=== PATIENT | female | born 1980 | race American Indian/Alaskan Native ===

== ENCOUNTER 2019-03-02 11:12 | Day surgery (SDC) | payer MEDICAID ==
--- NOTE | 2019-02-27 15:02 | History and Physical Report ---
History of Present Illness Date of examination: 03/02/19 Chief complaint: RUQ pain History of present illness: 38yo F went to the [facility] a couple months ago for back pain. This time had pain in anterior abdomen. +N/V. No F/C. Had similar attack in 2017. Both times told that she had gallstones. This time, was advised to see surgeon. Has diet with lots of cheese. Her last episode of pain was last week after eating. She has no pain now. Past History Past Medical History: hypertension Past Surgical History: (times 5), Other (tubal ligation; bladder repair after injury during 3rd ) Social history: denies: smoking Family history: cancer, diabetes, hypertension Medications and Allergies Allergies Allergy/AdvReac Type Severity Reaction Status Date / Time No Known Allergies Allergy Verified 02/25/19 12:23 Home Medications Medication Instructions Recorded Confirmed Last Taken Type Ergocalciferol [Vitamin D2] 1 cap PO QWEEK 02/25/19 02/25/19 Unknown History Labetalol HCl [Labetalol 300mg TAB] 300 mg PO BID 02/25/19 02/25/19 Unknown History Metformin HCl [Glucophage ER] 750 mg PO QDAY 02/25/19 02/25/19 Unknown History NIFEdipine [Nifedipine ER] 30 mg PO DAILY 02/25/19 02/25/19 Unknown History Review of Systems - Constitutional no fever, no chills, no chronic pain - Cardiovascular no chest pain, no shortness of breath - Respiratory no cough - Gastrointestinal abdominal pain (after eating), no nausea, no vomiting, no change in bowel habits, no loss of appetite, no dyspepsia/bloating - Genitourinary Genitourinary: no dysuria - Muskuloskeletal no low back pain - Integumentary no rash, no redness, no wounds Exam - General physical appearance Positive: well developed, well nourished, no distress, no pain, obese - Eyes Positive: normal occular movement. Negative: icteric - Neck Positive: trachea midline - Respiratory Positive: normal expansion, normal respiratory effort, clear to auscultation - Cardiovascular Rhythm: regular - Abdomen Abdomen: Present: soft, surgical scars (well healed incision). Absent: tender, distended, masses, guarding, rigid, wound - Integumentary no rash, no growths, no abnormal pigmentation - Neurologic Neurologic: alert and oriented to time, place and person, motor strength and sensation are grossly intact - Psychiatric Psychiatric: appropriate mood/affect, intact judgment & insight, cooperative Assessment and Plan - Patient Problems (1) Calculus of gallbladder with chronic cholecystitis without obstruction Current Visit: No Status: Acute Plan to address problem: By her history, it appears as though she has symptomatic cholelithiasis. She would benefit from cholecystectomy. She is a candidate for robotic-assisted cholecystectomy. Procedure, risks, benefits were explained. All questions were a nswered. Consent was obtained.
[~2019-03-02 11:12] MED LIST: ACETAMINOPHEN 500 MG TAB PO ONE; CELECOXIB 200 MG CAP PO NR; GABAPENTIN 300 MG CAP PO SCH; SODIUM CHLORIDE 0.9% 1000 ML 1,000 ML IV SCH; ceFAZolin/Water 2 GM/20 ML 2 GM/20 ML SYRINGE IV NR
[2019-03-02] MEDS ORDERED: LIDOCAINE (1%) 10 MG/1 ML VIAL 20 ML MDV ONE (12:25)
[2019-03-02] MEDS ORDERED: BUPIVACAINE-EPINEPHRINE/PF 0.5%-1:200,000 (30 ML) VIAL INFILTRATI ONE ×3 (12:25→14:35)
--- NOTE | 2019-03-02 12:29 | Short Stay Summary ---
Short Stay Documentation Date of service: 03/02/19 - History H&P: obtained from office Past Medical History: hypertension Past Surgical History: (times 5), Other (tubal ligation; bladder repair after injury during 3rd ) Social history: no smoking - Allergies and Medications Current Medications: Allergies No Known Allergies Allergy (Verified 02/25/19 12:23) Home Medications Medication Instructions Recorded Confirmed Last Taken Type Ergocalciferol [Vitamin D2] 1 cap PO QWEEK 02/25/19 02/25/19 Unknown History Labetalol HCl [Labetalol 300mg TAB] 300 mg PO BID 02/25/19 02/25/19 Unknown History Metformin HCl [Glucophage ER] 750 mg PO QDAY 02/25/19 02/25/19 Unknown History NIFEdipine [Nifedipine ER] 30 mg PO DAILY 02/25/19 02/25/19 Unknown History Active Medications Celecoxib (Celebrex) 200 mg PO PREOP NR Stop: 03/02/19 23:59 Gabapentin (Neurontin) 900 mg PO PREOP ZEINAB Sodium Chloride (Nacl 0.9% 1000 Ml) 1,000 mls @ 75 mls/hr IV DIRECT ZEINAB Cefazolin Sodium (Ancef/Sterile Water 2 Gm/20 Ml) 2 gm in 20 mls @ 80 mls/hr IV PREOP NR; Protocol Stop: 03/02/19 23:59 - Physical exam General appearance: no acute distress Integumentary: no rash, no growths, no abnormal pigmentation HEENT: Atraumatic Lungs: Clear to auscultation Heart: Regular rate Gastrointestinal: normal, no tenderness, no distended Extremities: No edema, normal temperature, normal color Neurological: Normal speech - Brief post op/procedure progress note Date of procedure: 03/02/19 (dictation:[id number]) Pre-op diagnosis: symptomatic cholelithiasis Post-op diagnosis: same (and chronic cholecystitis) Procedure: robotic assisted lap roosevelt IVF 900cc EBL 50cc Anesthesia: GETA Findings: intrahepatic GB. thickened peritoneal covering. very firm GB packed full of stones Surgeon: GEOVANY BALL (Asst: Elizabeth Stanford) Estimated blood loss: 50-100ml Pathology: list (gallbladder) Specimen disposition: to lab Condition: stable - Hospital course Hospital course: uneventful - Disposition Condition at discharge: Stable Disposition: DC-01 TO HOME OR SELFCARE - Discharge Diagnoses (1) Calculus of gallbladder with chronic cholecystitis without obstruction Status: Acute Short Stay Discharge Plan Wound: open to air, keep clean and dry Special Instructions: no heavy lifting (more than 10lbs) Additional Instructions: Post Operative Instructions No driving until cleared by surgeon. May shower tomorrow. Pat dry the wound or wounds. After surgery, start with a light diet. Consider having a liquid diet first. If you do well, you can advance to a regular diet as you feel comfortable. Apply an ice pack to the wound or wounds for 10-20 minutes at a time. Do this at least 4-5 times a day. You can do it more if he would like. Alternate the use of ibuprofen and Tylenol for the first 2 days. I want you to take these on a scheduled basis. Take 600 mg of ibuprofen every 6 hours. Take 500 mg of Tylenol every 6 hours. You should alternate these 2 medicines. In other words, beginning with the ibuprofen. After 3 hours, take the Tylenol. Keep alternating the 2 drugs every 3 hours. Do this on a scheduled basis for the first 2 days. After that, you can take them as needed. It is very important that you use the prescription pain medicine only for very severe pain. Do not take the prescription medicine before you try using the ibuprofen and Tylenol. We will call you in a couple of days to see how youre doing. If you have any questions or concerns, always feel free to call the clinic at any time. Follow up with: MONAE ALEX MD [Primary Care Provider] - 7 Days GEOVANY BALL MD [Staff Physician] - 14 Days
[2019-03-02] MEDS ORDERED: fentaNYL 100 MCG/2 ML INJ IV PRN (12:31)
[2019-03-02] MEDS ORDERED: ONDANSETRON 4 MG/2 ML INJ IV PRN ×2 (12:31→16:34)
--- NOTE | 2019-03-02 12:33 | Anesthesia Day of Surgery ---
Anesthesia Day of Surgery - Day of Surgery Patient Examined: Yes Patient H&P Reviewed: Yes Patient is NPO: Yes Beta Blockers: Yes
--- NOTE | 2019-03-02 12:35 | Anesthesia Consultation ---
Anesthesia Consult and Med Hx Date of service: 03/02/19 - Airway Anesthetic Teeth Evaluation: Chipped, Crowns ROM Head & Neck: Adequate Mental/Hyoid Distance: Adequate Mallampati Class: Class II Intubation Access Assessment: Probably Good - Pre-Operative Health Status ASA Pre-Surgery Classification: ASA3 Proposed Anesthetic Plan: General - Pulmonary Hx Smoking: Yes (ON AND OFF TOTAL 3YRS; QUIT 10/2018) - Cardiovascular System Hx Hypertension: Yes (03/2004) - Central Nervous System Hx Psychiatric Problems: Yes - Endocrine Hx Non-Insulin Dependent Diabetes: Yes - Hematic Hx Anemia: Yes (2002 SEC TO LONG MENSES; WITH PREGNANCIES) Hx Sickle Cell Disease: Yes (Trait) - Other Systems Hx Alcohol Use: Yes (QUIT 10/2018) Hx Substance Use: Yes (MARIJUANA QUIT 10/2018) Hx Cancer: No Hx Obesity: Yes
[2019-03-02] MEDS ORDERED: SUCCINYLCHOLINE CHLORIDE 200 MG/10 ML INJ MDV ONE (12:41)
[2019-03-02] MEDS ORDERED: ROCURONIUM 50 MG/5 ML INJ IV ONE (12:41)
[2019-03-02] MEDS ORDERED: LIDOCAINE MPF (2%) 20 MG/1 ML VIAL 5 ML ONE (12:41)
[2019-03-02] MEDS ORDERED: HYDROmorphone 1 MG/1 ML INJ ONE ×2 (12:42→16:26)
[2019-03-02] MEDS ORDERED: PROPOFOL 200 MG/20 ML VIAL IV ONE (12:43)
[2019-03-02] MEDS ORDERED: INSULIN NPH/REGULAR 70/30 INJ SUB-Q STA (12:54)
[2019-03-02] MEDS ORDERED: INSULIN REGULAR, HUMAN 100 UNITS/1 ML SUB-Q STA (12:56)
[2019-03-02] MEDS ORDERED: MIDAZOLAM 2 MG/2 ML INJ ONE (13:29)
[2019-03-02] MEDS ORDERED: LIDOCAINE (1%) 10 MG/1 ML VIAL 20 ML MDV INFILTRATI ONE (14:36)
[2019-03-02] MEDS ORDERED: WATER FOR IRRIG STERILE 1,500 ML BOTTLE IR ONE (14:36)
[2019-03-02] MEDS ORDERED: ACETAMINOPHEN 500 MG TAB ONE ×2 (14:45)
[2019-03-02] MEDS ORDERED: KETOROLAC 30 MG/1 ML INJ ONE ×2 (15:34→15:40)
[2019-03-02] MEDS ORDERED: ONDANSETRON 4 MG/2 ML INJ ONE (15:40)
[2019-03-02] MEDS ORDERED: NEOSTIGMINE 10MG/10 ML INJ MDV ONE (15:40)
[2019-03-02] MEDS ORDERED: GLYCOPYRROLATE 0.4 MG/2 ML INJ ONE (15:40)
[2019-03-02] MEDS ORDERED: INSULIN REGULAR, HUMAN 100 UNITS/1 ML IV ONE ×2 (16:00→16:10)
[2019-03-02] MEDS ORDERED: hydrALAZINE 20 MG/1 ML INJ ONE (16:05)
[2019-03-02] MEDS ORDERED: INSULIN REGULAR, HUMAN 100 UNITS/1 ML ONE (16:06)
[2019-03-02] MEDS ORDERED: hydrALAZINE 20 MG/1 ML INJ IV ONE ×2 (16:11→16:25)
[2019-03-02] MEDS ORDERED: HYDROmorphone 1 MG/1 ML INJ IV PRN (16:28)
[2019-03-02] MEDS ORDERED: oxyCODONE /ACETAMINOPHEN 5-325MG TAB ONE (17:16)
[2019-03-02] MEDS ORDERED: oxyCODONE /ACETAMINOPHEN 5-325MG TAB PO PRN (17:38)
--- NOTE | 2019-03-02 17:41 | Operative Report ---
PREOPERATIVE DIAGNOSIS: Symptomatic cholelithiasis with chronic cholecystitis. POSTOPERATIVE DIAGNOSIS: Symptomatic cholelithiasis with chronic cholecystitis. PROCEDURE: Robotic-assisted laparoscopic cholecystectomy. ATTENDING PHYSICIAN: Milton Dubon MD FAMILY PROGRAM SPECIALIST: Elizabeth Stanford. ESTIMATED BLOOD LOSS: Less than 50 mL. FLUIDS: 900 mL. FINDINGS: Intrahepatic gallbladder with thickened peritoneal covering. Gallbladder was densely packed with stones. No other abnormalities noted. SPECIMENS: Gallbladder. DRAINS: None. COMPLICATIONS: None. DISPOSITION: Stable, transport to recovery room. INDICATIONS: This is a 38-year-old female who presented to the office with complaints of post-prandial pain. The patient's history seemed consistent with symptomatic cholelithiasis. She also had prolonged pain in the right upper quadrant, which seemed to fit chronic cholecystitis. The patient was assessed to be need for cholecystectomy. Procedure, risks, benefits were explained to the patient. Risks included but were not limited to infection, bleeding, pain, injury to surrounding structures, possible open procedure, possible need for further procedures in the future. The patient understood and consented. OPERATIVE NOTE: The patient was brought to the operating room and placed on the table in supine position. After adequate general anesthesia was established, the patient was positioned and then prepped and draped in the usual sterile fashion. Antibiotics had been given prior to start of the case. SCDs were in place. Time-out was called. I began by placing a Veress needle in left upper quadrant and I was able to insufflate on the first attempt. This was then replaced with a 5 mm port using the Optiview technique for entry. We had no injury to the underlying structures. Under direct vision, we then placed a 12 mm port at the supraumbilical position and then two more 8 mm ports on the right side of the abdomen. Of note, just inferior to the location of our 12 mm port were adhesions to the umbilicus. I was able to go slightly superior to that and place the port safely. There was no injury to the adhesions. Once all the ports were in, we inserted a lap sponge to be used during the case and then the robot was docked. I then proceeded to the console. As noted previously, the gallbladder was intrahepatic. As it was packed with stones, it was very difficult to grab and elevate; therefore, I began with a top down approach. This difficulty in grasping the gallbladder increased our operative time. The intrahepatic nature of the gallbladder also made it difficult. I ultimately ended up rotating between the medial, lateral and top sides of the gallbladder, trying to dissect it. At one point, I placed a 2-0 silk stitch in the mid body of the gallbladder and then used that to elevate the gallbladder up. We had to move the gallbladder and change positions frequently in order to safely dissect out the gallbladder. Once we had dissected out most of the lateral side, I then was able to begin more dissection on the medial side. We ultimately got down to the triangle of Calot. I dissected out the cystic artery and clips were placed on either side and this was divided. At this point about half of the gallbladder had been dissected off the liver bed. Once the cystic artery was divided, I then was able to assess the tissue between the 2 areas. It did not appear to be anything significant, however, as a precaution I placed one clip distally in relation to the gallbladder and then divided that tissue. Now, we essentially had a very large critical view that extended 2[address] the gallbladder. I felt very confident that what was left was the cystic duct. I dissected out a little bit more of the surrounding tissue just to make sure it indeed appeared to be cystic duct. Thereafter, 2 clips were placed distally, 1 proximally in relation to the gallbladder. Cystic duct was divided. We then removed the rest of the attachments superiorly and the gallbladder was freed. We examined the liver bed. We had excellent hemostasis. There was no bile leak. Everything looked very good. We proceeded to convert back to laparoscopic case. EndoCatch was inserted. The specimen was placed in EndoCatch left on the side. We removed the Ray-Franklin and then I proceeded to remove the EndoCatch bag from the umbilical port site as expected because the gallbladder was densely packed with stones. This was one firm mass basically. We had to open up the fascia a little bit. I tried to do as little as possible in order to get the specimen out. Once that was done, we used the Anthony-Tom fascial closure device to close the fascia with 0 Vicryl stitch. There was a slight defect left that was no bigger than a 5 mm port. The rest of it closed very nicely. Additional local was injected. We had injected local at the beginning of the case as well. Once this was done, we made sure we had good hemostasis at the port sites. Skin was closed with 4-0 Monocryl subcuticular stitches. Skin was cleaned and dried. Dermabond was placed. The patient tolerated the procedure well. All counts were correct at the end of the case. I examined the gallbladder on the back table. I only saw one duct. There was no evidence of a second duct (common duct). I was satisfied with the appearance. JOB# [id number] KELLEY/ANA STARKS
[2019-03-02 21:28] VITALS: BP 157/82
--- NOTE | 2019-03-03 11:02 | Post Anesthesia Evaluation ---
- Post Anesthesia Evaluation Patient Participated: Yes Airway Patent: Yes Stable Respiratory Function: Yes Nausea/Vomiting: No Temp > 96.8F: Yes Pain Manageable: Yes Adequeate Hydration: Yes Anesthesia Complications: No Block Receding Appropriately: Not Applicable Patient on Ventilator: No
== END 2019-03-02 11:13 | disposition home or self-care (01) ==
LOC: OR 11:12
PROVIDERS: ATTEND Surgery
DX: K80.10 Calculus of gallbladder with chronic cholecystitis without obstruction (principal); I10 Essential (primary) hypertension; K21.9 Gastro-esophageal reflux disease without esophagitis; E66.9 Obesity, unspecified; E11.9 Type 2 diabetes mellitus without complications; F32.9 Major depressive disorder, single episode, unspecified; Z87.891 Personal history of nicotine dependence; Z79.84 Long term (current) use of oral hypoglycemic drugs; Z79.899 Other long term (current) drug therapy; Z68.41 Body mass index [BMI] 40.0-44.9, adult; Z98.51 Tubal ligation status; Z98.891 History of uterine scar from previous surgery; Z72.89 Other problems related to lifestyle; Z98.890 Other specified postprocedural states; Z80.3 Family history of malignant neoplasm of breast; Z86.2 Personal history of diseases of the blood and blood-forming organs and certain disorders involving the immune mechanism
CPT/HCPCS: 47562; 81025; 82962; 88304; J0330; J0360; J0690; J1170; J1885; J2250; J2405; J2704; J2710; J7030; S2900; J1815

== ENCOUNTER 2019-04-03 11:00 | Outpatient (CLI) | payer MEDICAID | END 2019-04-03 11:01 | disposition home or self-care (01) | LOC: SLR 11:00 | PROVIDERS: ATTEND Otolaryngology | DX: G47.30 Sleep apnea, unspecified (principal); I10 Essential (primary) hypertension; R40.0 Somnolence | CPT/HCPCS: G0399 ==

== ENCOUNTER 2019-04-30 09:12 | Outpatient (CLI) | payer MEDICAID | END 2019-04-30 09:13 | disposition home or self-care (01) | LOC: LAB 09:12 | PROVIDERS: ATTEND Internal Medicine | DX: E11.65 Type 2 diabetes mellitus with hyperglycemia (principal) | CPT/HCPCS: 36415; 83036 ==

== ENCOUNTER 2019-07-11 07:21 | Emergency (ER) | payer MEDICAID ==
[2019-07-11 07:27] VITALS: BP 194/104
--- NOTE | 2019-07-11 08:13 | XRay Report ---
RIGHT KNEE 3 VIEW(S) INDICATION / CLINICAL INFORMATION: MAIN: Fall with right knee injury on COMPARISON: None available. FINDINGS: BONES / JOINT(S): No acute fracture or subluxation. 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 Small suprapatellar joint effusion. SOFT TISSUES: No significant abnormality. ADDITIONAL FINDINGS: None. Signer Name: Edward Balbuena MD Signed: 07/11/2019 8:08 AM Workstation Name: [id number]
--- NOTE | 2019-07-11 10:15 | Emergency Department Report ---
ED Lower Extremity HPI - General Chief Complaint: Extremity Injury, Lower Stated Complaint: RT KNEE INJURY Time Seen by Provider: 07/11/19 09:54 Source: patient Mode of arrival: Ambulatory Limitations: No Limitations - History of Present Illness Initial Comments: 38-year-old Citizen Of [place] female presents emergency department complaining of pain to the right knee follow-up with swelling after a slip and fall couple days ago. She reports she fell backwards causing a hyperextension motion to the right knee which was followed by pain. She tried to treated at home with rest and anti- inflammatories but the knee grew more stiff and more tender. Complaint: knee injury -: Gradual Injury: Knee: Right Type of Injury: hyperextension Place: home Severity: moderate, severe Improves With: nothing Worsens With: nothing Context: fall Associated Symptoms: swelling, able to partially bear weight - Related Data Home Medications Medication Instructions Recorded Confirmed Last Taken Ergocalciferol [Vitamin D2] 1 cap PO QWEEK 02/25/19 02/25/19 Unknown Labetalol HCl [Labetalol 300mg TAB] 300 mg PO BID 02/25/19 02/25/19 Unknown Metformin HCl [Glucophage ER] 750 mg PO QDAY 02/25/19 02/25/19 Unknown NIFEdipine [Nifedipine ER] 30 mg PO DAILY 02/25/19 02/25/19 Unknown Previous Rx's Medication Instructions Recorded Last Taken Type Ketorolac [Toradol] 10 mg PO Q6H PRN #14 tablet 07/11/19 Unknown Rx Allergies Allergy/AdvReac Type Severity Reaction Status Date / Time No Known Allergies Allergy Verified 02/25/19 12:23 ED Review of Systems ROS: Stated complaint: RT KNEE INJURY Other details as noted in HPI Comment: All other systems reviewed and negative ED Past Medical Hx - Past Medical History Hx Hypertension: Yes (03/2004) Hx Diabetes: Yes (HIGH A1C AFTER GESTATIONAL DIABETES; PO MED) Hx GERD: Yes Hx Sickle Cell Disease: Yes (Trait) Hx HIV: No - Social History Smoking Status: Former Smoker Substance Use Type: Non Opiate Pain, Prescribed - Medications Home Medications: Home Medications Medication Instructions Recorded Confirmed Last Taken Type Ergocalciferol [Vitamin D2] 1 cap PO QWEEK 02/25/19 02/25/19 Unknown History Labetalol HCl [Labetalol 300mg TAB] 300 mg PO BID 02/25/19 02/25/19 Unknown History Metformin HCl [Glucophage ER] 750 mg PO QDAY 02/25/19 02/25/19 Unknown History NIFEdipine [Nifedipine ER] 30 mg PO DAILY 02/25/19 02/25/19 Unknown History Ketorolac [Toradol] 10 mg PO Q6H PRN #14 tablet 07/11/19 Unknown Rx ED Physical Exam - General Limitations: No Limitations General appearance: alert, in no apparent distress - Head Head exam: Present: atraumatic, normocephalic - Eye Eye exam: Present: normal appearance - ENT ENT exam: Present: mucous membranes moist - Neck Neck exam: Present: normal inspection - Respiratory Respiratory exam: Present: normal lung sounds bilaterally. Absent: respiratory distress - Cardiovascular Cardiovascular Exam: Present: regular rate, normal rhythm. Absent: systolic murmur, diastolic murmur, rubs, gallop - GI/Abdominal GI/Abdominal exam: Present: soft, normal bowel sounds - Extremities Exam Extremities exam: Present: normal inspection, tenderness, normal capillary refill, joint swelling - Expanded Lower Extremity Exam Right Knee exam: Present: swelling, posterior draw sign (. To have increased motion). Absent: pain/laxity with valgus, pain/laxity with varus Lower Leg exam: Present: normal inspection. Absent: deformity Ankle exam: Present: normal inspection Foot/Toe exam: Present: normal inspection Neuro vascular tendon exam: Present: no vascular compromise. Absent: pulse deficit, abnormal cap refill, motor deficit - Back Exam Back exam: Present: normal inspection - Neurological Exam Neurological exam: Present: alert, oriented X3, CN II-XII intact - Psychiatric Psychiatric exam: Present: normal affect, normal mood - Skin Skin exam: Present: warm, dry, intact, normal color. Absent: rash ED Course Vital Signs 07/11/19 07:26 Temperature 97.6 F Pulse Rate 82 Respiratory 16 Rate Blood Pressure 194/104 O2 Sat by Pulse 98 Oximetry ED Lower Extremity MDM - Radiology Data Radiology results: report reviewed Referring Physician:ED DOCPatient Name:BERYL STEINPatient ID:[id number] of :[id number]:FemaleAccession:[id number] Date:[id number] Status:Finalized Findings [facility] [address] [place] [address] XRay Report Signed Patient: BERYL STEIN MR #: [id number] : 1980 Acct:[id number] Age/Sex: 38 / F ADM Date: 07/11/19 Loc: ED Attending Dr: Ordering Physician: KYLE ZACARIAS MD Date of Service: 07/11/19 Procedure(s): XR knee 3V RT Accession Number(s): [id number] cc: KYLE ZACARIAS MD Fluoro Time In Minutes: RIGHT KNEE 3 VIEW(S) INDICATION / CLINICAL INFORMATION: MAIN: Fall with right knee injury on COMPARISON: None available. FINDINGS: BONES / JOINT(S): No acute fracture or subluxation. Mild tricompartment degenerative arthrosis especially at the patellofemoral compartment. Small suprapatellar joint effusion. SOFT TISSUES: No significant abnormality. ADDITIONAL FINDINGS: None. Signer Name: Edward Balbuena MD Signed: 07/11/2019 8:08 AM Workstation Name: [id number] Transcribed By: DT Dictated By: Rob Balbuena MD Electronically Authenticated By: Rob Balbuena MD Signed Date/Time: 07/11/19807 DD/ 4 TD/TT: Critical care attestation.: If time is entered above; I have spent that time in minutes in the direct care of this critically ill patient, excluding procedure time. ED Disposition Clinical Impression: Knee effusion, right, Internal derangement of knee Disposition: DC-01 TO HOME OR SELFCARE Is pt being admited?: No Does the pt Need Aspirin: No Condition: Stable Instructions: Knee Effusion (ED), Magnetic Resonance Imaging (ED), Knee Immobilizer (ED), Knee Pain (ED), Posterior Cruciate Ligament Injury (ED), Anterior Cruciate Ligament Injury (ED) Prescriptions: Ketorolac [Toradol] 10 mg PO Q6H PRN #14 tablet PRN Reason: Pain Referrals: PRIMARY CARE, [Primary Care Provider] - 3-5 Days JR SOSA MD [Staff Physician] - 3-5 Days
== END 2019-07-11 10:48 | disposition home or self-care (01) ==
LOC: ED 07:21
DX: M23.8X1 Other internal derangements of right knee (principal); I10 Essential (primary) hypertension; E11.9 Type 2 diabetes mellitus without complications; K21.9 Gastro-esophageal reflux disease without esophagitis; D57.3 Sickle-cell trait; Z87.891 Personal history of nicotine dependence; Z79.899 Other long term (current) drug therapy; W19.XXXA Unspecified fall, initial encounter; Y93.89 Activity, other specified; Y92.89 Other specified places as the place of occurrence of the external cause; Y99.8 Other external cause status

== ENCOUNTER 2021-11-29 08:34 | Outpatient (CLI) | payer MEDICAID ==
[2021-11-29 12:46] LABS: Chol/HDL Ratio 2.7 %
[2021-11-29 12:57] LABS: Basophils # (Auto) 0.1 K/mm3 (0.0-0.1); Basophils % (Auto) 1.1 % (0.0-1.8); Eosinophils # (Auto) 0.1 K/mm3 (0.0-0.4); Eosinophils % (Auto) 2.8 % (0.0-4.3); Hemoglobin 10.3 gm/dl (10.1-14.3); Lymphocytes # (Auto) 2.2 K/mm3 (1.2-5.4); Lymphocytes % (Auto) 42.5 % (13.4-35.0); Mean Corpuscular HGB Conc 32 % (30-34); Mean Corpuscular Volume 74 fl (79-97); Monocytes # (Auto) 0.5 K/mm3 (0.0-0.8); Platelet Count 245 K/mm3 (140-440); Red Blood Count 4.31 M/mm3 (3.65-5.03); Red Cell Distribution Width 17.1 % (13.2-15.2)
== END 2021-11-29 08:35 | disposition home or self-care (01) ==
LOC: LABHHL 08:34
PROVIDERS: ATTEND Internal Medicine
DX: E11.65 Type 2 diabetes mellitus with hyperglycemia (principal); D64.9 Anemia, unspecified; E78.5 Hyperlipidemia, unspecified
CPT/HCPCS: 36415; 80061; 83036; 85025